=== PATIENT | female | born 1995 | race Two or more races ===

== ENCOUNTER 2018-05-13 12:08 | Emergency (ER) | payer OTHER ==
--- NOTE | 2018-05-13 12:28 | ER Document Report ---
ED Cardiac - General Chief Complaint: Chest Pain Stated Complaint: CHEST PAIN Time Seen by Provider: 05/13/18 12:26 Mode of Arrival: Ambulatory Information source: Patient Notes: Chief complaint: Chest pain History of complain:( obtained from----patient) 22 years old female with a long history of second-degree heart block, supraventricular tachycardia, AV node ablation, 6 months , presents with an episode of feeling heartbeat dropping as well as palpitation. Worried that it could be her SVT. By the time she arrived to the ED symptoms have disappeared. Except slight pain over the anterior chest. No left arm numbness tingling sensation nausea vomiting. No fever chills or other constitutional symptoms. Did not smoke or drink any alcoholic drinks. Onset: As above Duration: Prior to arrival Severity: Mild to moderate Quality: Sharp Context: History of SVT Exacerbating factor and relieving factors: None REVIEW OF SYSTEMS: CONSTITUTIONAL : Denies fever, chills, or sweats. Denies recent illness. EENT: Denies eye, ear, throat, or mouth pain or symptoms. Denies nasal or sinus congestion or discharge. Denies throat, tongue, or mouth swelling or difficulty swallowing. CARDIOVASCULAR: Denies chest pain. Denies palpitations or racing or irregular heart beat. Denies ankle edema. RESPIRATORY: Denies cough, cold, or chest congestion. Denies shortness of breath, difficulty breathing, or wheezing. GASTROINTESTINAL: Denies distention. Denies nausea, vomiting, or diarrhea. Denies blood in vomitus, stools, or per rectum. Denies black, tarry stools. Denies constipation. GENITOURINARY: Denies difficulty urinating, painful urination, burning, frequency, blood in urine, or discharge. FEMALE GENITOURINARY: Denies vaginal bleeding, heavy or abnormal periods, irregular periods. Denies vaginal discharge or odor. MUSCULOSKELETAL: Denies back or neck pain or stiffness. Denies joint pain or swelling. SKIN: Denies rash, lesions or sores. HEMATOLOGIC : Denies easy bruising or bleeding. LYMPHATIC: Denies swollen, enlarged glands. NEUROLOGICAL: Denies confusion or altered mental status. Denies passing out or loss of consciousness. Denies dizziness or lightheadedness. Denies headache. Denies weakness or paralysis or loss of use of either side. Denies problems with gait or speech. Denies sensory loss, numbness, or tingling. Denies seizures. PSYCHIATRIC: Denies anxiety or stress. Denies depression, suicidal ideation, or homicidal ideation. ALL OTHER SYSTEMS REVIEWED AND NEGATIVE. PHYSICAL EXAMINATION: GENERAL: Well-appearing, well-nourished and in no acute distress. HEAD: Atraumatic, normocephalic. EYES: Pupils equal round and reactive to light, extraocular movements intact, conjunctiva are normal. ENT: Nares patent, oropharynx clear without exudates. Moist mucous membranes. NECK: Normal range of motion, supple without lymphadenopathy LUNGS: Breath sounds clear to auscultation bilaterally and equal. No wheezes rales or rhonchi. HEART: Regular rate and rhythm without murmurs ABDOMEN: Soft, nontender, nondistended abdomen. No guarding, no rebound. No masses appreciated. Examination of genitals-deferred Musculoskeletal: Normal range of motion, no pitting or edema. No cyanosis. NEUROLOGICAL: Cranial nerves grossly intact. Normal speech, normal gait. Normal sensory, motor exams PSYCH: Normal mood, normal affect. SKIN: Warm, Dry, normal turgor, no rashes or lesions noted. Dictation was performed using [employer] voice recognition software TRAVEL OUTSIDE OF THE [place] IN LAST 30 DAYS: No Past Medical History - Social History Smoking Status: Never Smoker Cigarette use (# per day): No Chew tobacco use (# tins/day): No Smoking Education Provided: No Frequency of alcohol use: Rare Drug Abuse: None Lives with: Family Family History: Reviewed & Not Pertinent - Past Medical History Cardiac Medical History: Reports: Other - svt Review of Systems - Review of Systems Notes: Dictated Physical Exam - Vital signs Vitals: Resp Pulse Ox 15 100 05/13/18 12:14 05/13/18 12:14 - Notes Notes: Dictated Course - Re-evaluation Re-evalutation: 05/13/18 17:29 She was monitored in the ER no untoward incident. Remained in sinus rhythm. - Vital Signs Vital signs: Temp Pulse Resp BP Pulse Ox 98.1 F 17 100/69 100 05/13/18 12:24 05/13/18 12:46 05/13/18 12:46 05/13/18 12:31 - Laboratory Result Diagrams: 05/13/18 12:19 05/13/18 12:19 Laboratory results interpreted by me: 05/13/18 05/13/18 12:19 12:19 Hgb 11.8 L Hct 34.3 L Creatinine 0.48 L - EKG Interpretation by Ma EKG shows normal: Sinus rhythm - At the rate of 75 bpm normal axis no acute ST elevation ST depression T-wave inversion noted. T-wave inversion in V2 and V3. Borderline increase in VT interval with first-degree block. Discharge - Discharge Clinical Impression: History of PSVT (paroxysmal supraventricular tachycardia) Chest pain Qualifiers: Chest pain type: unspecified Qualified Code(s): R07.9 - Chest pain, unspecified Qualifiers: Weeks of gestation: 9 weeks Qualified Code(s): Z3A.09 - 9 weeks gestation of Condition: Fair Disposition: HOME, SELF-CARE Instructions: Chest Pain of Unclear Cause ([facility])
[2018-05-13 12:51] LABS: ABSOLUTE LYMPHOCYTES (AUTO) 2.1 10^3/uL (0.5-4.7); ABSOLUTE MONOCYTES (AUTO) 0.4 10^3/uL (0.1-1.4); ABSOLUTE NEUT (AUTO) 6.3 10^3/uL (1.7-8.2); BASOPHILS % (AUTO) 0.3 % (0-2); EOSINOPHILS % (AUTO) 0.5 % (0-6); HEMATOCRIT 34.3 % (36.0-47.0); HEMOGLOBIN 11.8 g/dL (12.0-15.5); LYMPHOCYTES % (AUTO) 23.3 % (13-45); MEAN CORPUSCULAR HEMOGLOBIN 28.5 pg (27.0-33.4); MEAN CORPUSCULAR HGB CONC 34.6 g/dL (32.0-36.0); MEAN CORPUSCULAR VOLUME 83 fl (80-97); PLATELET COUNT 286 10^3/uL (150-450); RED BLOOD COUNT 4.16 10^6/uL (3.72-5.28); RED CELL DISTRIBUTION WIDTH 13.4 % (11.5-14.0); SEGMENTED NEUTROPHILS % (AUTO) 70.9 % (42-78); TOTAL CELLS COUNTED % (AUTO) 100 %; WHITE BLOOD COUNT 8.9 10^3/uL (4.0-10.5)
[2018-05-13 13:08] LABS: ALANINE AMINOTRANSFERASE 21 U/L (9-52); ALBUMIN 4.3 g/dL (3.5-5.0); ALKALINE PHOSPHATASE 43 U/L (38-126); ANION GAP 12 (5-19); ASPARTATE AMINO TRANSFERASE 20 U/L (14-36); BILIRUBIN,DIRECT 0.2 mg/dL (0.0-0.4); BILIRUBIN,TOTAL 0.3 mg/dL (0.2-1.3); BLOOD UREA NITROGEN 8 mg/dL (7-20); CALCIUM 8.9 mg/dL (8.4-10.2); CARBON DIOXIDE 24 mmol/L (22-30); CHLORIDE 106 mmol/L (98-107); CREATINE KINASE 33 U/L (30-135); GLUCOSE 90 mg/dL (75-110); SODIUM 141.9 mmol/L (137-145); TOTAL PROTEIN 7.5 g/dL (6.3-8.2)
[2018-05-13 13:21] LABS: CREATINE KINASE MB < 0.22 ng/mL (<4.55); TROPONIN I < 0.012 ng/mL
[2018-05-13] MEDS ORDERED: ONDANSETRON 4 MG TAB.RAPDIS ONE (13:42)
[2018-05-13 17:45] VITALS: BP 107/72
--- NOTE | 2018-05-13 19:42 | EKG REPORT ---
SEVERITY:- ABNORMAL ECG - SINUS RHYTHM FIRST DEGREE AV BLOCK BORDERLINE T ABNORMALITIES, DIFFUSE LEADS : Confirmed by: Luz Elena Hernandez MD 13-May-2018 19:41:19
== END 2018-05-13 17:53 | disposition home or self-care (01) ==
LOC: ER 12:08
DX: O26.91 Pregnancy related conditions, unspecified, first trimester (principal); R07.9 Chest pain, unspecified; Z3A.09 9 weeks gestation of pregnancy
CPT/HCPCS: 36415; 80053; 82550; 82553; 84484; 85025; 93005; 93010; 99285